=== PATIENT | male | born 1980 | race Caucasian/White ===

== ENCOUNTER 2019-04-02 17:06 | Emergency (ER) | payer OTHER ==
[~2019-04-02] VITALS: Ht 170.2 cm; Wt 90.7 kg
[2019-04-02] MEDS ORDERED: PEPCID AC20 MG PO (20:44)
[2019-04-02] MEDS ORDERED: CIPRO500 MG PO (20:44)
== END 2019-04-02 21:28 | disposition home or self-care (01) ==
LOC: ER 17:06
DX: R10.31 Right lower quadrant pain (principal); R10.32 Left lower quadrant pain